=== PATIENT | female | born 1990 | race Caucasian/White ===

== ENCOUNTER 2023-12-19 18:47 | Emergency (ER) | payer MEDICAID ==
[2023-12-19] MEDS: Fluorescein 1 MG Ophth Strip EYERT ONE (20:22)
== END 2023-12-19 20:39 | disposition home or self-care (01) ==
LOC: JD.ED 18:47
DX: S05.01XA Injury of conjunctiva and corneal abrasion without foreign body, right eye, initial encounter (principal); F17.210 Nicotine dependence, cigarettes, uncomplicated; X58.XXXA Exposure to other specified factors, initial encounter
CPT/HCPCS: 99283

== ENCOUNTER 2024-02-22 12:06 | Emergency (ER) | payer SELFPAY ==
[2024-02-22] MEDS ORDERED: Sodium Chloride 0.9% 10 ML Syringe FLUSH PRN (12:30)
[2024-02-22] MEDS ORDERED: Sodium Chloride 0.9% 1,000 ML IV SCH (13:00)
== END 2024-02-22 14:14 | disposition home or self-care (01) ==
LOC: JD.ED 12:06
DX: R11.2 Nausea with vomiting, unspecified (principal); R50.9 Fever, unspecified; F17.210 Nicotine dependence, cigarettes, uncomplicated
CPT/HCPCS: 87428-QW; 99284